=== PATIENT | male | born 1940 | race Caucasian/White ===

== ENCOUNTER 2016-11-10 10:28 | Outpatient (CLI) | payer MEDICARE ==
[2016-11-10 11:23] LABS: ALT (SGPT) 16 U/L (0-55); AST (SGOT) 18 U/L (5-34); Albumin 4.3 g/dL (3.4-4.8); Alkaline Phosphatase 43 U/L (40-150); Anion Gap 14 mmol/L (10-20); BUN (Urea Nitrogen) 16 mg/dL (8.4-25.7); Bilirubin, Total 0.6 mg/dL (0.2-1.2); Calc. Creatinine Clearance 0 mL/min (70-130); Calcium 9.6 mg/dL (7.8-10.44); Carbon Dioxide 27 mmol/L (23-31); Cardiac Risk 3.6 (Less than 4.5); Chloride 102 mmol/L (98-107); Cholesterol 138 mg/dL (< 200 Desired); Estimated GFR-MDRD 44; Globulin 2.8 g/dL (2.4-3.5); Glucose 97 mg/dL (83-110); HDL Cholesterol 38 mg/dL (>60 Neg Risk); LDL Cholesterol, Calculated 70 mg/dL; Potassium 4.2 mmol/L (3.5-5.1); Protein, Total 7.1 g/dL (5.8-8.1); Sodium 139 mmol/L (136-145); Triglycerides 150 mg/dL (Less than 150)
== END 2016-11-10 10:29 | disposition home or self-care (01) ==
LOC: MADLAB 10:28
PROVIDERS: ATTEND Internal Medicine Cardiovascular Disease
DX: I10 Essential (primary) hypertension (principal)
CPT/HCPCS: 36415; 80053; 80061

== ENCOUNTER 2018-04-13 08:23 | Outpatient (CLI) | payer MEDICARE ==
[2018-04-13 09:20] LABS: Anion Gap 14 mmol/L (10-20); BUN (Urea Nitrogen) 21 mg/dL (8.4-25.7); Calc. Creatinine Clearance 0 mL/min (70-130); Calcium 9.4 mg/dL (7.8-10.44); Carbon Dioxide 27 mmol/L (23-31); Cardiac Risk 3.9 (Less than 4.5); Chloride 104 mmol/L (98-107); Cholesterol 118 mg/dl (< 200 Desired); Estimated GFR-MDRD 39; Glucose 94 mg/dL (83-110); HDL Cholesterol 30 mg/dL (>60 Neg Risk); LDL Cholesterol, Calculated 66 mg/dL; Potassium 4.3 mmol/L (3.5-5.1); Sodium 141 mmol/L (136-145); Triglycerides 109 mg/dL (Less than 150)
== END 2018-04-13 08:24 | disposition home or self-care (01) ==
LOC: MADLAB 08:23
PROVIDERS: ATTEND Internal Medicine Cardiovascular Disease
DX: E78.00 Pure hypercholesterolemia, unspecified (principal)
CPT/HCPCS: 36415; 80048; 80061

== ENCOUNTER 2018-04-19 20:36 | Emergency (ER) | payer MEDICARE ==
--- NOTE | 2018-04-19 21:04 | RAD ---
PORTABLE CHEST 04/19/18 PROVIDED CLINICAL HISTORY: Altered mental status. FINDINGS: Comparison 08/07/08. Evaluation is limited by patient body habitus and portable technique. Cardiac silhouette appears enla rged. Median sternotomy changes are seen. Prominence of the pulmonary vasculature and pulmonary inter stitium. No definite focal air space disease, pleural fluid or pneumothorax apparent with limitations in evaluating the left lung base due to cardiomegaly and body habitus. IMPRESSION: Limited exam. Cardiac enlargement and pulmonary vasculature congestion suggests congestive failure. POS: TIM
[2018-04-19 21:08] LABS: #Basophils 0.1 thou/uL (0.0-0.2); #Eosinphils 0.3 thou/uL (0.0-0.7); #Lymphocytes 2.6 thou/uL (1.20-3.40); #Monocytes 0.6 thou/uL (0.11-0.59); #Neutrophils 3.7 thou/uL (1.40-6.50); %Basophils 1.2 % (0.0-1.0); %Eosinophils 3.9 % (0.0-10.0); %Lymphocytes 35.8 % (21.0-51.0); %Neutrophils 51.1 % (42.0-75.0); Hemoglobin 14.3 g/dL (14.0-18.0); Mean Corpuscular Hemoglobin 30.7 pg (27.0-31.0); Mean Corpuscular Volume 92.9 fL (78.0-98.0); Mean Platelet Volume 7.1 fL (7.4-10.4); Platelet Count 186 thou/uL (130-400); RBC Distribution Width 11.6 % (11.5-14.5); Red Blood Cell (RBC) Count 4.65 mill/uL (4.70-6.10); White Blood Cell (WBC) Count 7.3 thou/uL (4.8-10.8)
[2018-04-19 21:16] LABS: INR-International Normal Ratio 1.2; PTT 29.2 SEC (22.9-36.1); Prothrombin Time 15.6 SEC (12.0-14.7)
[2018-04-19 21:28] LABS: CKMB 3.6 ng/mL (0-6.6); Troponin I 0.063 ng/mL (< 0.028)
[2018-04-19 21:30] LABS: ALT (SGPT) 10 U/L (8-55); AST (SGOT) 13 U/L (5-34); Alkaline Phosphatase 52 U/L (40-150); Anion Gap 16 mmol/L (10-20); BUN (Urea Nitrogen) 24 mg/dL (8.4-25.7); Bilirubin, Total 0.4 mg/dL (0.2-1.2); Calc. Creatinine Clearance 0 mL/min (70-130); Carbon Dioxide 25 mmol/L (23-31); Chloride 103 mmol/L (98-107); Estimated GFR-MDRD 43; Globulin 2.7 g/dL (2.4-3.5); Glucose 140 mg/dL (83-110); Magnesium 2.7 mg/dL (1.6-2.6); Protein, Total 6.7 g/dL (5.8-8.1); Sodium 140 mmol/L (136-145)
== END 2018-04-19 21:28 | disposition short-term general hospital (02) ==
LOC: MADERS 20:36
DX: I48.91 Unspecified atrial fibrillation (principal); E78.5 Hyperlipidemia, unspecified; I10 Essential (primary) hypertension; F17.210 Nicotine dependence, cigarettes, uncomplicated; F17.290 Nicotine dependence, other tobacco product, uncomplicated; Z79.899 Other long term (current) drug therapy
CPT/HCPCS: 71045; 80053; 82553; 83735; 83880; 84443; 84484; 85025; 85610; 85730; 93005